=== PATIENT | male | born 1955 | race Hispanic/Latino ===

== ENCOUNTER 2018-01-15 10:07 | Day surgery (SDC) | payer OTHER ==
[2018-01-15] MEDS ORDERED: Ringers Lactate 1,000 ML IV ONE (10:23)
[2018-01-15] MEDS ORDERED: PROPOFOL 200 MG/20 ML VIAL IV ONE ×3 (12:02→12:03)
[2018-01-15] MEDS ORDERED: LIDOCAINE 1% MPF 5 ML VIAL ONE (12:03)
--- NOTE | 2018-01-15 12:49 | ENDO RPT ---
[address], [address] COLONOSCOPY PROCEDURE REPORT EXAM DATE: 01/15/2018 PATIENT NAME: Alec Álvarez MR #: [id number] BIRTHDATE: 1955 ATTENDING: Quincy Ariza Dr STATUS: outpatient CERTIFIED INDOOR ENVIRONMENTALIST: Maryann Ulloa RN, Marbella Wick RN, and Camelia Davis INDICATIONS: The patient is a 62 yr old Male here for a colonoscopy due to personal history of colon polyps PROCEDURE PERFORMED: Colonoscopy with snare polypectomy and Colon w/ endoclip MEDICATIONS: Per Anesthesia. ESTIMATED BLOOD LOSS: None CONSENT: The patient understands the risks and benefits of the procedure and understands that these risks include, but are not limited to: sedation, allergic reaction, infection, perforation and/or bleeding. Alternative means of evaluation and treatment include, among others: physical exam, x-rays, and/or surgical intervention. The patient elects to proceed with this endoscopic procedure. DESCRIPTION OF PROCEDURE: During intra-op preparation period all mechanical medical equipment was checked for proper function. Hand hygiene and appropriate measures for infection prevention was taken. Procedure, possible complications, alternatives including, but not limited to possibility of bleeding, perforation, tear, infection, sepsis, need for surgery, need for blood transfusion, were explained to the patient. After the risks, benefits and alternatives of the procedure were thoroughly explained, Informed consent was verified, confirmed and timeout was successfully executed by the treatment team. The patient was placed in the left lateral position. A digital rectal exam was performed and revealed no abnormalities of the rectum. After appropriate level of anesthesia, the scope was passed. The [id number] ([id number]) endoscope was introduced through the anus and advanced to the terminal ileum which was intubated for a short distance. The quality of the prep was good. The instrument was then slowly withdrawn as the colon was fully examined. Scope withdrawal time was 9 minutes. COLON FINDINGS: A sessile polyp measuring 1.2 cm in size was found in the ascending colon. A polypectomy was performed using snare cautery. Bleeding at the site was controlled using hemoclips. One (1) placement was made. A flat polyp measuring 5 mm in size was found in the rectum. A polypectomy was performed using snare cautery. Mild diverticulosis was noted in the sigmoid colon. No bleeding was noted from the diverticulosis. Moderate sized internal hemorrhoids were found. Retroflexed views revealed medium hemorrhoids. The scope was then completely withdrawn from the patient and the procedure terminated. ADVERSE EVENTS: There were no complications. IMPRESSIONS: 1. Sessile polyp measuring 1.2 cm in size in the ascending colon; polypectomy was performed using snare cautery; bleeding at the site was controlled using hemoclip X1 2. 5 mm flat polyp in the rectum; polypectomy was performed using snare cautery 3. Mild diverticulosis in the sigmoid colon 4. Moderate sized internal hemorrhoids 5. Intubation to terminal ileum 6. Personal history of colon polyps RECOMMENDATIONS: 1. await biopsy results 2. avoid NSAIDS for 2 weeks RECALL: Return in 1 year(s) for Colonoscopy. Quincy Ariza Dr eSigned: Quincy Ariza Dr 01/15/2018 12:49 PM cc: Juan C Medina CPT CODES: ICD9 CODES: 1. 211.3 Benign neoplasm of colon 2. 569.0 Anal and rectal polyp PATIENT NAME: Alec Álvarez MR#: [id number]
== END 2018-01-15 13:32 | disposition home health service (06) ==
LOC: OR 10:07
PROVIDERS: ATTEND Internal Medicine Gastroenterology
PROC: 0DBP8ZZ Excision of Rectum, Via Natural or Artificial Opening Endoscopic (ICD-10-PCS; 2018-01-15)
PROC: 0DBK8ZZ Excision of Ascending Colon, Via Natural or Artificial Opening Endoscopic (ICD-10-PCS; principal; 2018-01-15 12:30)
DX: K63.5 Polyp of colon (principal); K62.1 Rectal polyp
CPT/HCPCS: 88305

== ENCOUNTER 2020-04-26 11:23 | Emergency (ER) | payer OTHER ==
--- OUTSIDE RECORDS SUMMARY | 2020-04-26 11:31 | XMS REPORT | Continuity of Care Document ---
:1955 Author Organization [facility] Address [address] [place] [address] Dr. Coronel [address] [place] [id number] Care Team Providers Name Role Phone Unavailable Unavailable Unavailable Problems This patient has no known problems. Allergies, Adverse Reactions, Alerts This patient has no known allergies or adverse reactions. Medications This patient has no known medications. Procedures This patient has no known procedures. Results This patient has no known results.
[2020-04-26] MEDS ORDERED: TETANUS & DIPHTHERIA TOX,ADULT 0.5 ML VIAL ONE ×2 (12:25→12:27)
--- NOTE | 2020-04-26 13:49 | RAD REPORT ---
EXAM DESCRIPTION: RAD - Knee Left 3 View - 04/26/2020 1:16 pm CLINICAL HISTORY: PAIN COMPARISON: No comparisons FINDINGS: No fracture, dislocation or periosteal reaction.No joint effusion seen. No joint space maria rowing. Spurring is seen at the quadriceps insertion to the patella and patella tendon origin from th e patella. Soft tissue wound is present lateral to the knee and proximal leg. Air is seen in the soft tissues. I ntra-articular extension is not identifiable. IMPRESSION: Lateral soft tissue wound with air in the soft tissues. No communication to the joint space confirmed. No acute bone finding.
[2020-04-26] MEDS ORDERED: SMZ./TMP. 800/160 MG TABLET ONE (14:03)
--- NOTE | 2020-04-26 14:42 | ER ---
Nurse's Notes [facility] Name: Alec Álvarez Age: 64 yrs Sex: Male : 1955 Arrival Date: 04/26/2020 Time: 11:25 Bed 6 Private MD: Diagnosis: Dog Bite;Leg Laceration Presentation: 04/26 11:25 Chief complaint: Patient states: bitten by neighbor's dog 1 hour ago while riding bike. ss PD has been notified CASE # [id number]. Coronavirus screen: Client denies travel out of the [place] in the last 14 days. At this time, the client does not indicate any symptoms associated with coronavirus-19. Ebola Screen: Patient denies exposure to infectious person. Patient denies travel to an Ebola-affected area in the 21 days before illness onset. Initial Sepsis Screen: Does the patient meet any 2 criteria? No. Patient's initial sepsis screen is negative. Does the patient have a suspected source of infection? No. Patient's initial sepsis screen is negative. Risk Assessment: Do you want to hurt yourself or someone else? Patient reports no desire to harm self or others. Onset of symptoms was April 26, 2020. 11:25 Method Of Arrival: Ambulatory ss 11:25 Acuity: TONI 4 ss Triage Assessment: 12:43 Bite description: bite sustained to left leg is from animal, was sustained 1-2 hours ll1 ago. by a dog, animal information: Animal control has been notified, prior to arrival. General: Appears in no apparent distress. Behavior is calm, cooperative, appropriate for age. 14:55 Bite description: animal information: vaccination(s) is current. ll1 Historical: - Allergies: 11:26 PENICILLINS; ss - Immunization history:: Last tetanus immunization: unknown. - Social history:: Smoking status: Patient denies any tobacco usage or history of. Screenin:43 Abuse screen: Denies threats or abuse. Nutritional screening: No deficits noted. ll1 Tuberculosis screening: No symptoms or risk factors identified. Fall Risk Gait- Impaired (20 pts.). Total Te[place] Fall Scale indicates No Risk (0-24 pts). Assessment: 12:00 General: Appears in no apparent distress. Behavior is calm, cooperative. Pain: ll1 Complains of pain in left leg Quality of pain is described as burning, aching, Is continuous. Neuro: No deficits noted. Cardiovascular: No deficits noted. Respiratory: No deficits noted. Derm: Skin Skin is pink, warm \T\ dry. Wound noted dog bite left leg Wound is 2 linear deep abrasions noted to left calf area. Jagged laceration just distal to posterior knee, <4cm. Bleeding controlled. Reports pain. Musculoskeletal: Reports pain in left leg. 13:00 Reassessment: Patient appears in no apparent distress at this time. No changes from ll1 previously documented assessment. Patient and/or family updated on plan of care and expected duration. Pain level reassessed. Patient is alert, oriented x 3, equal unlabored respirations, skin warm/dry/pink. 14:00 Reassessment: Patient appears in no apparent distress at this time. No changes from ll1 previously documented assessment. Patient and/or family updated on plan of care and expected duration. Pain level reassessed. Patient is alert, oriented x 3, equal unlabored respirations, skin warm/dry/pink. 14:53 Reassessment: Patient appears in no apparent distress at this time. No changes from ll1 previously documented assessment. Patient and/or family updated on plan of care and expected duration. Pain level reassessed. Patient is alert, oriented x 3, equal unlabored respirations, skin warm/dry/pink. Vital Signs: 11:25 BP 143 / 92; Pulse 76; Resp 16; Temp 97.6(TE); Pulse Ox 98% on R/A; Weight 122.47 kg; ss Height 6 ft. 1 in. (185.42 cm); Pain 5/10; 14:53 BP 149 / 87; Pulse 57; Resp 17; Pulse Ox 98% ; Pain 0/10; ll1 11:25 Body Mass Index 35.62 (122.47 kg, 185.42 cm) ED Course: 11:25 Patient arrived in ED. ds1 11:26 Triage completed. 11:26 Arm band placed on right wrist. 11:28 Maurilio Lanier PA is PHCP. [facility] 11:28 Juan Campos MD is Attending Physician. [facility] 11:54 Mely Shields, MISTY is Primary Nurse. ll1 12:44 Patient has correct armband on for positive identification. Bed in low position. Call ll1 light in reach. Side rails up X 1. 13:16 Knee Left 3 View XRAY In Process Unspecified. EDMS 14:09 Wound care: to laceration located on left leg was dressed with Neosporin, covered with ll1 non stick dressing. Kerlix, then cleo wrapped. , Patient tolerated well. 14:54 No provider procedures requiring assistance completed. Patient did not have IV access ll1 during this emergency room visit. Administered Medications: 12:25 Drug: Tetanus-Diphtheria Toxoid Adult 0.5 ml {Case Briefer: [employer]. Exp: ll1 11/11/2022. Lot #: [id number]. } Route: IM; Site: left deltoid; 14:55 Follow up: Response: No adverse reaction; RASS: Alert and Calm (0) ll1 14:08 Drug: Clindamycin 300 mg Route: PO; ll1 14:55 Follow up: Response: No adverse reaction; RASS: Alert and Calm (0) ll1 14:08 Drug: Bactrim (160 mg-800 mg (DS) 1 tablet Route: PO; ll1 15:11 Follow up: Response: No adverse reaction; RASS: Alert and Calm (0) ll1 Outcome: 14:41 Discharge ordered by . hiral 14:54 Patient left the ED. ll1 14:54 Discharged to home ambulatory. ll1 14:54 Condition: stable 14:54 Discharge instructions given to patient, Instructed on discharge instructions, follow up and referral plans. medication usage, wound care, Demonstrated understanding of instructions, follow-up care, medications, wound care, Prescriptions given X 2. Signatures: Dispatcher [employer] EDNM Maurilio Lanier PA PA Alison Callahan ds1 Sabi Tobar RN RN ss Lewis, Lynsay, RN RN ll1 Corrections: (The following items were deleted from the chart) 11:27 11:25 Chief complaint: Patient states: bitten by neighbor's dog 1 hour ago while riding bike. PD have been notified CASE # [id number] ss
--- NOTE | 2020-04-26 14:42 | EDPHYS ---
Physician Documentation [facility] Name: Alec Álvarez Age: 64 yrs Sex: Male : 1955 Arrival Date: 04/26/2020 Time: 11:25 Bed 6 Private MD: ED Physician Juan Campos HPI: 04/26 11:40 This 64 yrs old Male presents to ER via Ambulatory with complaints of Dog Bite.jmm 11:40 The patient was bitten on the left leg. Onset: The symptoms/episode began/occurred jmm acutely, just prior to arrival. Associated signs and symptoms: Pertinent negatives: erythema at site, fever, loss of consciousness. This is a 64 year old male that presents to the ED with complaints of a left leg laceration. Patient states he was bitten by a neighbors dog as he was riding a bike. Not UTD on tetanus immunizations. . Historical: - Allergies: 11:26 PENICILLINS; ss - Immunization history:: Last tetanus immunization: unknown. - Social history:: Smoking status: Patient denies any tobacco usage or history of. ROS: 11:40 Constitutional: Negative for fever, chills, and weight loss, Cardiovascular: Negative jmm for chest pain, palpitations, and edema, Respiratory: Negative for shortness of breath, cough, wheezing, and pleuritic chest pain. 11:40 Skin: Positive for laceration(s). 11:40 All other systems are negative. Exam: 11:40 Constitutional: This is a well developed, well nourished patient who is awake, alert, jmm and in no acute distress. Head/Face: atraumatic. Eyes: EOMI, no conjunctival erythema appreciated ENT: Moist Mucus Membranes Neck: Trachea midline, Supple Chest/axilla: Normal chest wall appearance and motion. Cardiovascular: Regular rate and rhythm. No edema appreciated Respiratory: Normal respirations, no respiratory distress appreciated Abdomen/GI: Non distended, soft Back: Normal ROM 11:40 Musculoskeletal/extremity: FROM noted to the left knee, compartments are soft, NVI. 11:40 Skin: 4 cm macerated laceration noted to the left posterior lateral knee. 11:40 Neuro: Orientation: is normal, Mentation: is normal, Memory: is normal. Vital Signs: 11:25 BP 143 / 92; Pulse 76; Resp 16; Temp 97.6(TE); Pulse Ox 98% on R/A; Weight 122.47 kg; ss Height 6 ft. 1 in. (185.42 cm); Pain 5/10; 14:53 BP 149 / 87; Pulse 57; Resp 17; Pulse Ox 98% ; Pain 0/10; ll1 11:25 Body Mass Index 35.62 (122.47 kg, 185.42 cm) ss Laceration: 17:54 Wound Repair of 6cm ( 2.4in ) subcutaneous laceration to left leg. Distal jmm neuro/vascular/tendon intact. Anesthesia: Local anesthetic administered with 10 mls of 1% lidocaine. Wound prep: Extensive cleansing with betadine by me, Wound irrigation with saline by me. Skin closed with 5 4-0 Prolene using loosely approximated. Patient tolerated well. MDM: 11:40 Patient medically screened. [facility] 14:40 Data reviewed: vital signs, nurses notes. Counseling: I had a detailed discussion with [facility] the patient and/or guardian regarding: the historical points, exam findings, and any diagnostic results supporting the discharge/admit diagnosis, radiology results, the need for outpatient follow up, to return to the emergency department if symptoms worsen or persist or if there are any questions or concerns that arise at home. ED course: Patient given wound infection return precautions. . 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 Exp: ll1 11/11/2022. Lot #: [id number]. } Route: IM; Site: left deltoid; 14:55 Follow up: Response: No adverse reaction; RASS: Alert and Calm (0) ll1 14:08 Drug: Clindamycin 300 mg Route: PO; ll1 14:55 Follow up: Response: No adverse reaction; RASS: Alert and Calm (0) ll1 14:08 Drug: Bactrim (160 mg-800 mg (DS) 1 tablet Route: PO; ll1 15:11 Follow up: Response: No adverse reaction; RASS: Alert and Calm (0) ll1 Disposition: 04/27 08:05 Co-signature as Attending Physician, Juan Campos MD I agree with the assessment and kdr plan of care. Disposition: 04/26/20 14:41 Discharged to Home. Impression: Dog Bite, Leg Laceration. - Condition is Stable. - Discharge Instructions: Animal Bite. - Prescriptions for Clindamycin HCl 300 mg Oral Capsule - take 1 capsule by ORAL route every 6 hours for 10 days; 40 capsule. Bactrim DS 800- 160 mg Oral Tablet - take 1 tablet by ORAL route every 12 hours for 10 days; 20 tablet. - Medication Reconciliation Form, Thank You Letter, Antibiotic Education, Prescription Opioid Use form. - Follow up: Private Physician; When: 2 - 3 days; Reason: Recheck today's complaints, Continuance of care, Re-evaluation by your physician. Signatures: Dispatcher [employer] EDMS Juan Campos MD MD kdr Mickail, Joel, PA PA jmm Smirch, Shelby, MISTY RN ss Mely Shields RN RN ll1 Corrections: (The following items were deleted from the chart) 04/26 14:54 14:41 04/26/2020 14:41 Discharged to Home. Impression: Dog Bite; Leg Laceration. ll1 Condition is Stable. Forms are Medication Reconciliation Form, Thank You Letter, Antibiotic Education, Prescription Opioid Use. Follow up: Private Physician; When: 2 - 3 days; Reason: Recheck today's complaints, Continuance of care, Re-evaluation by your physician. hiral
[2020-04-26 15:21] VITALS: BP 143/92; TEMP 97.6; O2SAT 98
== END 2020-04-26 14:54 | disposition home or self-care (01) ==
LOC: ER 11:23
PROC: 0JQP0ZZ Repair Left Lower Leg Subcutaneous Tissue and Fascia, Open Approach (ICD-10-PCS; principal; 2020-04-26)
DX: S81.812A Laceration without foreign body, left lower leg, initial encounter (principal); W54.0XXA Bitten by dog, initial encounter; Y93.55 Activity, bike riding; Y92.89 Other specified places as the place of occurrence of the external cause; Z23 Encounter for immunization; Z88.0 Allergy status to penicillin
CPT/HCPCS: 90471; 90714; 99284

== ENCOUNTER 2022-05-09 06:00 | Day surgery (SDC) | payer OTHER ==
[2022-05-06 15:15] LABS: Absolute Lymphocytes (CBC) 2.6 K/uL (0.7-4.9); Hematocrit 40.7 % (39.6-49.0); Lymphocytes % 25.3 % (15.3-44.8); MCV 87.3 fL (80-100); MPV 9.2 fL (7.6-11.3); RBC Red Blood Cell Count 4.66 M/uL (4.33-5.43)
[2022-05-06 15:28] LABS: Potassium 3.8 mmol/L (3.5-5.1)
--- NOTE | 2022-05-07 08:13 | EKG ---
Test Date: 2022-05-06 Test Time: 14:52:19 Utility Worker Film Processing: PATRICIA MEASUREMENT RESULTS: Intervals: Rate: 70 ND: 182 QRSD: 98 QT: 400 QTc: 432 [place]: P: 61 ND: 182 QRS: 18 T: 29 INTERPRETIVE STATEMENTS: Normal sinus rhythm Normal ECG No previous ECG available for comparison Electronically Signed On 05-07-22 08:11:09 CDT by James Capellan
[2022-05-09] MEDS ORDERED: CLINDAMYCIN 900MG/D5W 900 MG/50 ML IVPB IV ONE (06:22)
[2022-05-09] MEDS: Ringers Lactate 1,000 ML IV ONE ×2 (06:45→06:50)
[2022-05-09] MEDS ORDERED: propofoL 200 MG/20 ML VIAL IV ONE (06:46)
[2022-05-09] MEDS ORDERED: FENTANYL CITR 100 MCG/2 ML ONE ×2 (06:46→07:54)
[2022-05-09] MEDS ORDERED: LIDOCAINE 1% MPF 5 ML VIAL ONE (06:46)
[2022-05-09] MEDS ORDERED: ACETAMINOPHEN 500 MG TAB ONE (06:52)
[2022-05-09] MEDS ORDERED: CLINDAMYCIN 900MG/D5W 900 MG/50 ML IVPB IV SCH (07:00)
[2022-05-09] MEDS ORDERED: ONDANSETRON 4 MG/2 ML VIAL ONE (07:22)
[2022-05-09 08:33] VITALS: O2SAT 98
[2022-05-09 09:13] VITALS: BP 137/76; TEMP 96.4
--- NOTE | 2022-05-09 19:11 | OP ---
Date of Procedure: 05/09/2022 Surgeon: Shahriar Naidu MD Preoperative Diagnosis: Right knee pain with mechanical symptoms, probable meniscal tear or tears. 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 3.Tear of medial meniscus. Procedure: Right knee arthroscopy with debridement of medial meniscus as well as some light abrasion chondroplasty of the medial femoral condyle for unstable flaps. Estimated Blood Loss: Less than 10 cc. Complications: There were no complications. Specimen: No pathology specimens sent. Indications: Mr. Álvarez is a 67-year-old male who unfortunately has pain and problems with his knee f or some time. He does have evidence of meniscal tear on MRI as well as degenerative changes. Risks, benefits, and alternatives of different methods of treating have been discussed with the patient in the office for arthroscopic intervention for mechanical symptoms. He knows that arthroscopy is not g ood for degenerative articular lesions, however, hopefully will help with his mechanical complaints. All of his questions have been answered. Description Of Procedure: The patient was taken to the operating room and placed in the supine posit ion. General anesthesia was obtained by staff. Following this, well-padded tourniquet was placed on superior right thigh. Right lower extremity was then prepped and draped in usual sterile fashion. The tourniquet was not used throughout the procedure. A standard superomedial arthroscopy portal was then placed with aspiration of approximately 5 cc of rather normal-appearing synovial fluid. This w as followed by placement of inferolateral arthroscopy portal, which was made atraumatically with 1 pa ss. The knee was then sequentially examined including the suprapatellar pouch, the medial and latera l gutters, medial and lateral compartments, as well as the notch and patellofemoral joint. Pertinent findings included an abundance of fat pad on the lateral aspect, making visualization of the lateral compartment difficult. Also seen is what appears to be a grade 3-4 chondromalacia of the medial com partment as well as grade 2-3 chondromalacia of the patellofemoral joint. There does appear to be a tear of the posterior aspect of the medial meniscus. A standard medial arthroscopy portal was then m tawana under direct vision and a probe was then placed within the knee. There are some unstable chondra l flaps on the medial femoral condyle. Also seen is a rather complex displaceable tear of the medial meniscus. After this, with a combination of 3-5 shaver as well as hand instruments were then used t o debride back the medial meniscus to a firm hook stable well contoured base. This was followed by l ight abrasive chondroplasty on the medial femoral condyle to allow for no unstable flaps. There was no chondral tissue removed, which was not unstable by hook palpation. At the end of this, all the ch ondral surfaces as well as the meniscus were firm, hook stable, and well contoured. Attention was th en turned to better visualization of the lateral side. The shaver was then used to debride back quit e a bit of fat pad along the lateral aspect of the knee to allow for visualization. Visualization wa s achieved and there was a little bit of fraying of the lateral meniscus, which was gently made darya h, however, would not call this an official debridement. After this, the knee was again examined in all the above areas with no further pathology seen, which is amenable to arthroscopic intervention. The inferior arthroscopy portals were then stapled shut. Superomedial arthroscopy portal was used fo r placement of Marcaine with epinephrine, which was then stapled shut. He was then placed in a well- padded sterile dressing, awakened, and taken to recovery room in good condition. There were no compl ications. SE/MODL Voice ID: [id number] Report ID: [id number]
== END 2022-05-09 09:06 | disposition home or self-care (01) ==
LOC: OR 06:00
PROVIDERS: ATTEND Orthopaedic Surgery
PROC: 0SBC4ZZ Excision of Right Knee Joint, Percutaneous Endoscopic Approach (ICD-10-PCS; principal; 2022-05-09 07:00)
DX: S83.241D Other tear of medial meniscus, current injury, right knee, subsequent encounter (principal); Z88.0 Allergy status to penicillin
CPT/HCPCS: 93005; 85025; 80048; 36415; 29881; J2704; J3010 ×2; J7120; J2405

== ENCOUNTER 2023-06-16 13:05 | Day surgery (SDC) | payer OTHER ==
--- NOTE | 2023-06-10 14:54 | RAD REPORT ---
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 COMPARISON: Chest Pa And Lat (2 Views) dated 12/23/2018 FINDINGS: Mild interstitial pulmonary edema likely present. The heart is mildly enlarged in size. No displaced fractures. IMPRESSION: Mild CHF.
[2023-06-10 15:32] LABS: Hematocrit 38.9 % (39.6-49.0); Lymphocytes % 19.2 % (15.3-44.8); MCV 87.4 fL (80-100); MPV 8.7 fL (7.6-11.3); Platelets 287 thou/uL (152-406); RBC Red Blood Cell Count 4.45 M/uL (4.33-5.43)
[2023-06-10 15:38] LABS: Protime INR 1.16
--- NOTE | 2023-06-11 14:33 | EKG ---
Test Date: 2023-06-10 Test Time: 14:19:45 Director Underwriter Sales: MASOOD MEASUREMENT RESULTS: Intervals: Rate: 71 [place]: 184 QRSD: 100 QT: 378 QTc: 410 [place]: P: 45 [place]: 184 QRS: 29 T: -2 INTERPRETIVE STATEMENTS: Normal sinus rhythm Normal ECG Compared to ECG 05/06/2022 14:52:19 No significant changes Electronically Signed On 06-11-23 14:30:58 CDT by Ramon Mullen
[2023-06-16] MEDS ORDERED: ACETAMINOPHEN 325 MG TABLET ONE (14:12)
[2023-06-16] MEDS ORDERED: FENTANYL CITR 100 MCG/2 ML ONE (14:43)
[2023-06-16] MEDS ORDERED: LIDOCAINE 1% 20 ML MDV ONE (14:43)
[2023-06-16] MEDS ORDERED: MIDAZOLAM HCL 2 MG/2 ML INJ ONE (14:43)
[2023-06-16] MEDS ORDERED: NITROGLYCERIN/D5W 25 MG/250 ML BTL IV ONE (14:43)
[2023-06-16] MEDS ORDERED: LIDOCAINE 1% MPF 30 ML VIAL ONE (14:44)
[2023-06-16] MEDS ORDERED: DIPHENHYDRAMINE 50 MG/ML VIAL ONE (15:04)
[2023-06-16] MEDS ORDERED: METHYLPREDNISOLONE 125 MG INJ ONE (15:04)
[2023-06-16] MEDS ORDERED: HEPARIN 10,000 UNIT/10 ML VIAL IV ONE (15:26)
[2023-06-16] MEDS ORDERED: REGADENOSON 0.4 MG/5 ML SYR IV ONE (15:26)
[2023-06-16] MEDS ORDERED: CLOPIDOGREL 75 MG TABLET ONE (15:39)
[2023-06-16] MEDS ORDERED: ASPIRIN 325 MG TAB ONE (15:39)
--- OUTSIDE RECORDS SUMMARY | 2023-06-16 18:59 | XMS REPORT | Continuity of Care Document ---
:1955 Author Organization [facility] t Address [address] [place] [address] Care Team Providers Name Role Phone Ángel Medina Attending Clinician Unavailable Fer Wadsworth Attending Clinician Unavailable KNOW, DOES_NOT Admitting Clinician Unavailable Payers Payer Name Policy Type Policy Number Effective Date Expiration Date S ource Problems Condition Condition Condition Status Onset Resolution Last Treating Co mments Source Name Details Category Date Date Treatment Clinician Date [id number] Other tear Problem Co mmon of medial [facility] meniscus - [facility] of right [facility] current Medical injury, Center subsequent encounter [id number] Status Problem Common post [facility] arthroscop - [facility] y of right [facility] [id number] [place], [place] [id number] joint, [facility] knee, - [facility] right [facility] Allergies, Adverse Reactions, Alerts Allergy Allergy Status Severity Reaction(s) Onset Inactive Treating Comm ents Source Name Type Date Date Clinician [id number] Drug Active Unknown Common 85 allergy [facility] Social History Social Habit Start Date Stop Date Quantity Comments Source History of Tobacco Use Co mmon [facility] Sex Assigned At Com mon [facility] Smoking Status Start Date Stop Date Source Never Smoker Common [facility] Medications Ordered Filled Start Stop Current Ordering Indication Dosage Frequency Signature Comments Components Source Medication Medication Date Date Medication? Clinician (SIG) Name Name Acetaminoph Acetaminoph 2021-0 No 1{table Acetaminop en-Codeine en-Codeine 8-18 t_as_ne hen-Codein #3 300-30 #3 300-30 00:00: eded} e #3 MG MG 00 300-30 MG Acetaminoph Acetaminoph 202-0 No 1{table en-Codeine en-Codeine 8-18 t_as_ne #3 300-30 #3 300-30 00:00: eded} MG MG 00 Acetaminoph Acetaminoph 2-0 No 1{table Acetaminop en-Codeine en-Codeine 8-18 t_as_ne hen-Codein #3 300-30 #3 300-30 00:00: eded} e #3 MG MG 00 300-30 MG Acetaminoph Acetaminoph 2021-0 No 1{table Acetaminop en-Codeine en-Codeine 8-18 t_as_ne hen-Codein #3 300-30 #3 300-30 00:00: eded} e #3 MG MG 00 300-30 MG Acetaminoph Acetaminoph 2022-0 No 1{table Acetaminop en-Codeine en-Codeine 8-18 t_as_ne hen-Codein #3 300-30 #3 300-30 00:00: eded} e #3 MG MG 00 300-30 MG Acetaminoph Acetaminoph 2-0 No 1{table Acetaminop en-Codeine en-Codeine 8-18 t_as_ne hen-Codein #3 300-30 #3 300-30 00:00: eded} e #3 MG MG 00 300-30 MG Acetaminoph Acetaminoph 2022-0 No 1{table Acetaminop en-Codeine en-Codeine 8-18 t_as_ne hen-Codein #3 300-30 #3 300-30 00:00: eded} e #3 MG MG 00 300-30 MG hydroCHLORO hydroCHLORO No hydroCHLOR thiazide thiazide Othiazide Tamsulosin Tamsulosin No Tamsulosin HCl HCl HCl hydroCHLORO hydroCHLORO No thiazide thiazide Tamsulosin Tamsulosin No HCl HCl hydroCHLORO hydroCHLORO No hydroCHLOR thiazide thiazide Othiazide Tamsulosin Tamsulosin No Tamsulosin HCl HCl HCl hydroCHLORO hydroCHLORO No hydroCHLOR thiazide thiazide Othiazide Tamsulosin Tamsulosin No Tamsulosin HCl HCl HCl hydroCHLORO hydroCHLORO No hydroCHLOR thiazide thiazide Othiazide Tamsulosin Tamsulosin No Tamsulosin HCl HCl HCl hydroCHLORO hydroCHLORO No hydroCHLOR thiazide thiazide Othiazide Tamsulosin Tamsulosin No Tamsulosin HCl HCl HCl hydroCHLORO hydroCHLORO No hydroCHLOR thiazide thiazide Othiazide Tamsulosin Tamsulosin No Tamsulosin HCl HCl HCl Vital Signs Vital Name Observation Time Observation Value Comments Source height 2022-05-23 09:00:00 73 [in_i] [facility] weight 2022-05-23 09:00:00 276 [lb_av] [facility] temperature 2022-05-23 09:00:00 98.0 [facility]degF[facility] bmi 2022-05-23 09:00:00 36.41 kg/m2 [facility] pressure 2022-05-23 09:00:00 137 mm[Hg] [facility] - systolic [facility] blood pressure 2022-05-23 09:00:00 76 mm[Hg] [facility] - diastolic [facility] height 2022-05-06 10:00:00 73 [in_i] Common S pirit [facility] weight 2022-05-06 10:00:00 275 [lb_av] [facility] S pirit [facility] bmi 2022-05-06 10:00:00 36.28 kg/m2 [facility] blood pressure 2022-05-06 10:00:00 139 mm[Hg] [facility] - systolic [facility] blood pressure 2022-05-06 10:00:00 88 mm[Hg] [facility] - diastolic [facility] height 2022-02-21 13:15:00 73 [in_i] Common S pirit - [facility] weight 2022-02-21 13:15:00 280 [lb_av] [facility] 2022-02-21 13:15:00 36.94 kg/m2 Common [facility] blood pressure 2022-02-21 13:15:00 138 mm[Hg] [facility] - systolic [facility] blood pressure 2022-02-21 13:15:00 78 mm[Hg] [facility] - diastolic [facility] height 2021-12-10 14:00:00 73 [in_i] Common [facility] weight 2021-12-10 14:00:00 279.2 [lb_av] Common [facility] bmi 2021-12-10 14:00:00 36.83 kg/m2 [facility] blood pressure 2021-12-10 14:00:00 140 mm[Hg] [facility] - systolic [facility] blood pressure 2021-12-10 14:00:00 78 mm[Hg] [facility] - diastolic [facility] Procedures This patient has no known procedures. Encounters Start End Encounter Admission Attending Care Care Encounter Source Date/Time Date/Time Type Type Clinicians Facility Department ID 2022-05-23 Outpatient [facility]ul [facility] [id number] Common 09:06:02 a, Ángel [id number] [facility] 2021-12-10 [facility] [id number] Common 13:54:03 a, Ángel [id number] [facility] 2023-03-20 2023-03-20 Outpatient LAMAR Wadsworth, NELPM ECHO LA0 [id number] [facility] 09:46:00 09:46:00 Fer Jaimes [facility] 2022-05-23 2022-05-23 NON-BILLAB STLC STLC [id number] Common 00:00:00 00:00:00 LE VISIT [facility] 2022-05-08 2022-05-08 (TEL) STLC STLC [id number] Co mmon 00:00:00 00:00:00 [facility] 2022-05-06 2022-05-06 OFFICE STLMLC STLMLC [id number] Co mmon 00:00:00 00:00:00 VISIT [facility] PT - CHI LEVEL [address] [place] [address] 2022-02-26 2022-02-26 (TEL) STLMLC STLMLC [id number] Co mmon 00:00:00 00:00:00 [facility] 2022-02-21 2022-02-21 OFFICE STLMLC STLMLC [id number] Co mmon 00:00:00 00:00:00 VISIT [facility] PT - CHI LEVEL [address] [place] [address] 2021-12-18 2021-12-18 (TEL) STLMLC STLMLC [id number] Co mmon 00:00:00 00:00:00 [facility] 2021-12-10 2021-12-10 OFFICE STLMLC STLMLC [id number] Co mmon 00:00:00 00:00:00 VISIT NEW [facility] it PT LEVEL [address] [place] [address] Results Test Description Test Time Test Comments Results Result Comments Source MRI Knee Right Wo MRI Knee Right Wo Cont Cont
[2023-06-16] MEDS ORDERED: ACETAMINOPHEN 325 MG TABLET PO PRN (19:08)
--- NOTE | 2023-06-16 19:10 | P.HP ---
Certification for Inpatient Patient admitted to: Observation With expected LOS: <2 Midnights Patient will require the following post-hospital care: None Practitioner: I am a practitioner with admitting privileges, knowledge of patient current condition, hospital course, and medical plan of care. Services: Services provided to patient in accordance with Admission requirements found in Title 42 Section 412.3 of the Code of Federal Regulations Patient History Date of Service: 06/16/23 Reason for admission: CAD s/p PCI History of Present Illness: 68-year-old male with history of hypertension, moderate aortic valve stenosis was brought into the hospital for an outpatient heart catheterization. He ended up needing to have 3 stents placed and there was difficulty with the Angio-Seal for closure, he needs to have direct pressure applied to the cath site in the right femoral area for approximate 1 hour, cardiology was to observe patient in hospital overnight given risk of bleeding. Allergies Penicillins Allergy (Verified 06/10/23 14:03) Rash/Anaphylaxis shrimp Allergy (Verified 06/10/23 14:03) Swollen Lips Home Medications: Ascorbic Acid [Vitamin C] 500 mg PO DAILY 05/06/22 Cholecalciferol (Vitamin D3) [Vitamin D 5,000 Iu Cap] 5,000 unit PO DAILY 05/06/22 Tamsulosin [Flomax] 0.4 mg PO BEDTIME 05/06/22 Zinc 50 mg PO DAILY 05/06/22 hydroCHLOROthiazide [Hydrochlorothiazide] 25 mg PO DAILY 05/06/22 - Past Medical/Surgical History -: Hypertension -: Moderate aortic valve stenosis -: Rotator cuff, meniscus repair Psychosocial/ Personal History: Lives at home with family - Family History Father -: Heart disease - Social History Smoking Status: Never smoker Alcohol use: No CD- Drugs: No Caffeine use: Yes Place of Residence: Home Review of Systems Unremarkable Physical Examination - Vital Signs Blood Pressure: 131/76 Pulse: 61 Respirations: 18 - Physical Exam General: Alert, In no apparent distress, Oriented x3 HEENT: Atraumatic, PERRLA, Mucous membr. moist/pink, EOMI, Sclerae nonicteric Neck: Supple, 2+ carotid pulse no bruit, No LAD, Without JVD or thyroid abnormality Respiratory: Clear to auscultation bilaterally, Normal air movement Cardiovascular: Regular rate/rhythm, Normal S1 S2, Other (Right femoral cath site dressing clean, dry without obvious signs of hematoma) Capillary refill: >2 Seconds Gastrointestinal: Normal bowel sounds, No tenderness Musculoskeletal: No tenderness Integumentary: No rashes Neurological: Normal speech, Normal strength at 5/5 x4 extr, Normal tone, Normal affect Assessment and Plan - Plan Assessment: CAD status post PCI Hypertension Plan: CAD status post PCI Unable to close with Angio-Seal device, direct pressure applied for 1 hour after procedure, no bleeding currently noted we will observe over hospital for signs of bleeding/complication. Continue aspirin, statin, Plavix. Hypertension Continue home medication. DVT PPX: SCD Code status: Full Discharge Plan: Home Plan to discharge in: 24 Hours - Advance Directives Does patient have a Living Will: No Does patient have a Durable POA for Healthcare: No - Code Status/Comfort Care Code Status Assessed: Yes (Full code) Critical Care: No Time Spent Managing Pts Care (In Minutes): 55
--- NOTE | 2023-06-16 19:13 | CON ---
Date of Consultation: 06/16/2023 Reason For Consultation: Management post PCI. History Of Present Illness: A 68-year-old male, who was evaluated as an outpatient with chest pain a nd shortness of breath on exertion. Had a stress test showed large anterior wall and lateral wall is chemia. We brought him to the cardiac catheterization laboratory today and found to have severe mid and distal LAD stenosis, status post successful PCI, and closure of the groin failed and required lit tle pressure for a long time of small hematoma. He did not have any chest pain. Past Medical History: Hypertension. Medications: Refer to reconciliation sheet for detailed list. He is on lisinopril. Allergies: IODINE. Family History: No premature coronary artery disease or cancer. Social History: He does not smoke or drink. Does not use any drugs. Review of Systems: All systems reviewed and they were negative except what mentioned in HPI. Physical Examination: Vital Signs: Reviewed. Head and Neck: Pupils are equal, reactive to light. Intact eye movements. No JVD. No cervical lym phadenopathy. Neck is supple. Thyroid is not enlarged. Lungs: Clear to auscultation bilaterally. No rhonchi, wheezing, or crackles. No accessory muscle u se. Heart: Regular rate and rhythm. No extra sounds. Abdomen: Soft, nontender. Bowel sounds positive. No organomegaly. No masses or hernia. No rigidi ty or rebound. Extremities: No edema, clubbing, or cyanosis. Intact pulses. Skin: No rash. Neurologic: Alert, awake, oriented x3. No acute focal deficits appreciated. Investigations: Labs are still pending. Assessment And Recommendations: 1.Coronary artery disease, status post PCI of the LAD. Observe overnight due to the failure of clos ure of the groin and to monitor his groin closely overnight. The patient was loaded with aspirin and Plavix. Continue aspirin at 81 mg daily and Plavix 75 mg daily and start Lipitor 40 mg at bedtime. 2.Hypertension. Blood pressure is controlled. Continue lisinopril. SR/MODL Voice ID: [id number] Report ID: [id number]
[2023-06-16 19:42] VITALS: BMI 35.6
--- NOTE | 2023-06-16 19:45 | OP ---
Date of Procedure: 06/16/2023 Surgeon: JANETT KEENE Procedures Performed: 1.Selective coronary angiogram. 2.FFR of the mid and distal LAD, was significant at 0.78. 3.PCI of distal LAD, used 3.0 x 60 mm Synergy drug-eluting stent. 4.PCI of mid LAD, used 3.5 x 28 mm Synergy drug-eluting stent, overlapped distally by using 3.0 x 12 mm drug-eluting stent. Indication: Chest pain with abnormal stress test. Access: Right femoral artery 6-Ethiopian closed with manual pressure. Complications: None. Bleeding: Less than 20. Description Of Procedure: After risks, benefits, alternatives were explained, the patient agreed to procedure and signed informed consent. [facility], prepped and draped in the usual sterile fashion. Then, I accessed right femoral artery using micropuncture kit, ultrasound guidance, fluoroscopy, and placed a 6-Ethiopian Sarita sheath and took a 6-Ethiopian JL4 catheter into the aortic root, engaged the left main, took standard views, and exchang ed for a 6-Ethiopian JR4 catheter, engaged the RCA, took standard views and then I gave systemic heparin to assure ACT level above 250. Took a 6-Ethiopian EBU3.5 into the aortic root, engaged left main and t ook a pressure wire into the aortic root. Pressures were equalized. Heparin was given to assure ACT level above 250 and then the wire was advanced into the distal LAD. FFR was done using Lexiscan, it was significant 0.78. There were 2 jumps, 1 in the distal lesion, 1 in the mid lesion. Then using the Comet wire, it was advanced in distal LAD again and then using a 3.0 balloon, both lesions were d ilated and they opened nicely and then I placed 3.0 x 60 mm Synergy drug-eluting stent distally and p roximally, I placed a 3.5 x 28 mm Synergy drug-eluting stent, overlapped distally by using a 3.0 x 12 mm Synergy drug-eluting stent with excellent results. Then, I removed the wire. Final angiogram wa s satisfactory. I removed the guide and the sheath and then manual pressure was used for closure. Findings: 1.Left main; large, normal. 2.LAD; has a proximal 20% to 30%, mid 60% to 70% with positive FFR, status post successfully PCI as above and then distal 70% with positive FFR, status post successful PCI as above. 3.Left circumflex; large and dominant and no significant disease. 4.RCA; small, nondominant. No significant disease. Conclusion: Severe mid and distal LAD stenosis, status post successful PCI as above, FFR guided. Plan: 1.Aspirin, Plavix, and statin. 2.Observe overnight due to inability to close the groin and requiring manual pressure for a long dana e. If he needs at least 4 hours of bedrest, then carefully monitor the groin. SR/MODL Voice ID: [id number] Report ID: [id number]
[2023-06-16] MEDS: NA CHLORIDE 0.9% 1,000 ML IV SCH (20:52)
[2023-06-16] MEDS ORDERED: ATORVASTATIN 40 MG TAB PO SCH (21:00)
[2023-06-16 23:34] VITALS: O2SAT 96
[2023-06-17] MEDS: NA CHLORIDE 0.9% 1,000 ML IV SCH ×2 (00:40→08:28)
[2023-06-17 03:15] LABS: Absolute Lymphocytes (CBC) 1.1 K/uL (0.7-4.9); Hematocrit 38.2 % (39.6-49.0); Lymphocytes % 9.5 % (15.3-44.8); MCV 86.8 fL (80-100); MPV 8.9 fL (7.6-11.3); Platelets 256 thou/uL (152-406)
[2023-06-17 05:06] LABS: Blood Morphology Comment NOT SEEN (NOT SEEN); Platelet Estimate ADEQ
--- NOTE | 2023-06-17 08:32 | P.DS ---
Admission Date: 06/16/23 Discharge Date: 06/17/23 Disposition: ROUTINE DISCHARGE Discharge Condition: GOOD Reason for Admission: CAD s/p PCI Consultations: 1. Cardiology Procedures: - 06/16/[address] Mullen: 1. Selective coronary angiogram. 2. FFR of the mid and distal LAD, was significant at 0.78. 3. PCI of distal LAD, used 3.0 x 60 mm Synergy drug-eluting stent. 4. PCI of mid LAD, used 3.5 x 28 mm Synergy drug-eluting stent, overlapped distally by using 3.0 x 12 mm drug-eluting stent. Hospital Course: DIAGNOSES: # Coronary Artery Disease s/p PCI # Hypertension # Moderate Aortic Stenosis # Chronic Kidney Disease Stage III HOSPITAL COURSE: Mr. Alec Álvarez is a pleasant 68 year old male with a past medical history significant for coronary artery disease, hypertension, and chronic kidney disease stage III who was admitted to the [facility] on 06/16/2023 following his left heart catheterization procedure. He was admitted to the Medicine service. He had a scheduled cardiac catheterization yesterday, and required PCI x3. Following the procedure, there was difficulty with the Angio-Seal for closure at his right femoral catheter site. He required pressure to the area for approximately 1 hour. He was admitted for observation due to the risk of bleeding. He was monitored in the hospital overnight and did well. His hemoglobin counts remained stable and his catheterization site was clean, dry, and intact, without evidence of bleeding or hematoma. Dr. Mullen has cleared him for discharge with outpatient follow-up. A beta-disha will be considered at his next Cardiology appointment. On 06/17/2023, he was seen on morning rounds and deemed medically stable for discharge. He was discharged with instructions to schedule follow-up appointments with his PCP and with Cardiology (Dr. Mullen). He was provided prescriptions for atorvastatin and clopidogrel. He and his family members were given the opportunity to ask questions and reported no further questions. Furthermore, all questions were answered to the best of my ability. A copy of this discharge summary will be sent to the above providers to facilitate continuity of care. Today, I personally spent 20 minutes on his case, of which greater than 50% of the time was spent in patient education, counseling, and coordination of care as described above. Vital Signs/Physical Exam: Temp Pulse Resp BP Pulse Ox 97.1 F 65 18 140/77 95 06/17/23 04:00 06/17/23 04:00 06/17/23 04:00 06/17/23 04:00 06/17/23 04:00 General: Alert, In no apparent distress, Oriented x3 HEENT: Atraumatic, Mucous membr. moist/pink, Sclerae nonicteric Neck: JVD not distended Respiratory: Clear to auscultation bilaterally, Normal air movement Cardiovascular: No edema, Regular rate/rhythm, Normal S1 S2, No gallops, No rubs, No murmurs Gastrointestinal: Normal bowel sounds, Soft and benign, Non-distended, No tenderness, No rebound, No guarding Musculoskeletal: No clubbing, Other (right femoral catheterization site is clean, dry, intact - without evidence of bleeding or hematoma) Integumentary: No rashes Neurological: Normal speech, Normal affect Laboratory Data at Discharge: WBC 11.20 thou/uL (4.3-10.9) H 06/17/23 02:30 Hgb 13.1 g/dL (13.6-17.9) L 06/17/23 02:30 Hct 38.2 % (39.6-49.0) L 06/17/23 02:30 Plt Count 256 thou/uL (152-406) 06/17/23 02:30 PT 12.8 SECONDS (9.5-12.5) H 06/10/23 14:25 INR 1.16 06/10/23 14:25 APTT 32.9 SECONDS (24.3-36.9) 06/10/23 14:25 Sodium 137 mEq/L (136-145) 06/10/23 14:25 Potassium 4.0 mEq/L (3.5-5.1) 06/10/23 14:25 BUN 23 mg/dL (7-18) H 06/10/23 14:25 Creatinine 1.32 mg/dL (0.70-1.30) H 06/10/23 14:25 Glucose 205 mg/dL (74-106) H 06/10/23 14:25 Home Medications: hydroCHLOROthiazide [Hydrochlorothiazide] 25 mg PO DAILY 05/06/22 Lisinopril [Zestril] 10 mg PO DAILY 06/16/23 Aspirin [Aspirin EC] 81 mg PO DAILY #30 06/17/23 Atorvastatin Calcium [Lipitor] 40 mg PO BEDTIME #30 tab 06/17/23 Clopidogrel Bisulfate [Plavix] 75 mg PO DAILY #30 tab 06/17/23 New Medications: Aspirin [Aspirin EC] 81 mg PO DAILY #30 Atorvastatin Calcium [Lipitor] 40 mg PO BEDTIME #30 tab Clopidogrel Bisulfate [Plavix] 75 mg PO DAILY #30 tab Physician Discharge Instructions: 1. Please call and schedule a follow-up appointment with your PCP in 3-5 days 2. Please call and schedule a follow-up appointment with Cardiology (Dr. Mullen) in 5-7 days Medication changes: 1. Please take clopidogrel (Plavix) 75 mg once per day 2. Please take atorvastatin 40 mg once per day You have been given a 1 month prescription for these medications. Please follow- up with your PCP for medication refills/adjustments Diet: AHA Activity: Ad bari Time spent managing pt's care (in minutes): 25
[2023-06-17] MEDS ORDERED: ASPIRIN EC 81 MG TAB PO SCH (09:00)
[2023-06-17] MEDS ORDERED: CLOPIDOGREL 75 MG TABLET PO SCH (09:00)
[2023-06-17 09:33] VITALS: BP 149/75; TEMP 97.8
--- NOTE | 2023-06-17 09:47 | RAD REPORT ---
EXAM DESCRIPTION: Salima Single View06/17/2023 9:32 am CLINICAL HISTORY: Abnormal recent chest radiograph, concern for CHF. Follow-up COMPARISON: Chest Pa And Lat (2 Views) dated 06/10/2023; Chest Pa And Lat (2 Views) dated 12/23/2018 TECHNIQUE: Portable AP view of the chest. FINDINGS: The lungs are clear. Interval improvement of central interstitial prominence. No pneumotho rax or effusion. The cardiomediastinal contours are unremarkable. IMPRESSION: No acute cardiopulmonary process.
[2023-06-17] MEDS ORDERED: ACETAMINOPHEN 325 MG TABLET ONE (09:50)
--- NOTE | 2023-06-17 17:50 | PN ---
Date of Progress Note: 06/17/2023 Subjective: Seen by bedside, status post PCI of the LAD yesterday, doing very well. Review of Systems: No chest pain, shortness of breath, orthopnea, or cough. No nausea, vomiting, or diarrhea. All othe r systems reviewed, they were negative. Objective: Vital Signs: Reviewed. Head and Neck: Pupils are equal, reactive to light. Intact eye movements. No JVD. No cervical lym phadenopathy. Neck is supple. Thyroid is not enlarged. Lungs: Clear to auscultation bilaterally. No rhonchi, wheezing, or crackles. No accessory muscle u se. Heart: Regular rate and rhythm. No extra sounds. Abdomen: Soft, nontender. Bowel sounds positive. No organomegaly. No masses or hernia. No rigidi ty or rebound. Extremities: No edema, clubbing, or cyanosis. Intact pulses. Groin looks fine. No hematoma. Neurologic: Alert, awake, oriented x3. No acute focal deficits appreciated. Investigation: Labs were reviewed. Assessment And Recommendations: 1.Coronary artery disease, status post PCI of the LAD, doing very well. Continue aspirin and Plavix . 2.Hypertension. Blood pressure is controlled. Continue current management, and from cardiology sta ndpoint, he can be released. Follow up with me in the office in 1 week. 3.Dyslipidemia. Continue statin. SR/MODL Voice ID: [id number] Report ID: [id number]
== END 2023-06-17 10:55 | disposition home or self-care (01) ==
LOC: SUATTDRO 13:05 → CCL 13:05 → 2ND 15:40 → UNDOADMOB 15:40 → 2ND 18:15 → PRE 06-17 09:15 → 2ND 06-17 09:18 → UNDOADMOB 06-17 09:18 → CCL 06-17 10:55
PROVIDERS: ATTEND Internal Medicine
DX: I25.10 Atherosclerotic heart disease of native coronary artery without angina pectoris (principal); L76.32 Postprocedural hematoma of skin and subcutaneous tissue following other procedure; Y84.0 Cardiac catheterization as the cause of abnormal reaction of the patient, or of later complication, without mention of misadventure at the time of the procedure; Y92.239 Unspecified place in hospital as the place of occurrence of the external cause; I35.0 Nonrheumatic aortic (valve) stenosis; I12.9 Hypertensive chronic kidney disease with stage 1 through stage 4 chronic kidney disease, or unspecified chronic kidney disease; N18.30 Chronic kidney disease, stage 3 unspecified; E78.5 Hyperlipidemia, unspecified; Z79.899 Other long term (current) drug therapy; Z88.0 Allergy status to penicillin; Z91.013 Allergy to seafood; Z82.49 Family history of ischemic heart disease and other diseases of the circulatory system
CPT/HCPCS: 36415; 71045; 71046; 76937; 80048; 85025; 85347; 85610; 85730; 93005; 93454; 93571; C1725; C1769; C1893; C9600; J1200; J2001; J2250; J2785; J2930; J3010; J7030; Q9966

== ENCOUNTER → 2023-09-10 | Emergency (ER) | payer OTHER ==
--- OUTSIDE RECORDS SUMMARY | 2023-09-10 10:30 | XMS REPORT | Continuity of Care Document ---
Author Name Unknown Address [address] [facility] [address] [place] [address] [facility] thconnect Address [address] [facility] [address] [place] [address] Care Team Providers Care Reducer Name Role Phone Ángel Medina Attending Clinician Marrya ble Problems Condition Name Condition Details Condition Category Status Onset Date Resolution Date Last Treatment Date Treating Clinician Comments Source [id number] Other tear of medial meniscus of right knee as current injury, subsequent encounter Problem [facility] [id number] Status post arthroscop y of right knee Problem [facility] [id number] Pain, joint, knee, right Problem [facility] Allergies, Adverse Reactions, Alerts Allergy Name Allergy Type Status Severity Reaction(s) Onset Date Inactive Date Treating Clinician Comments Source [id number] Drug allergy Active Unknown [facility] Social History Social Habit Start Date Stop Date Quantity Comments Source History of Tobacco Use [facility] Sex Assigned At [facility] Smoking Status Start Date Stop Date Source Never Smoker [facility] Medications Ordered Medication Name Filled Medication Name Start Date Stop Date Current Medication? Ordering Clinician Indication Dosage Frequency Signature (SIG) Comments Components Source Acetaminoph en-Codeine #3 300-30 MG Acetaminoph en-Codeine #3 300-30 MG 8-18 00:00: 00 No 1{table t_as_ne eded} Acetaminop hen-Codein e #3 300-30 MG Acetaminoph en-Codeine #3 300-30 MG Acetaminoph en-Codeine #3 300-30 MG 2022-0 8-18 00:00: 00 No 1{table t_as_ne eded} Acetaminoph en-Codeine #3 300-30 MG Acetaminoph en-Codeine #3 300-30 MG 2022-0 8-18 00:00: 00 No 1{table t_as_ne eded} Acetaminop hen-Codein e #3 300-30 MG Acetaminoph en-Codeine #3 300-30 MG Acetaminoph en-Codeine #3 300-30 MG 2022-0 8-18 00:00: 00 No 1{table t_as_ne eded} Acetaminop hen-Codein e #3 300-30 MG Acetaminoph en-Codeine #3 300-30 MG Acetaminoph en-Codeine #3 300-30 MG 2022-0 8-18 00:00: 00 No 1{table t_as_ne eded} Acetaminop hen-Codein e #3 300-30 MG Acetaminoph en-Codeine #3 300-30 MG Acetaminoph en-Codeine #3 300-30 MG 2022-0 8-18 00:00: 00 No 1{table t_as_ne eded} Acetaminop hen-Codein e #3 300-30 MG Acetaminoph en-Codeine #3 300-30 MG Acetaminoph en-Codeine #3 300-30 MG 2022-0 8-18 00:00: 00 No 1{table t_as_ne eded} Acetaminop hen-Codein e #3 300-30 MG hydroCHLORO thiazide hydroCHLORO thiazide No hydroCHLOR Othiazide Tamsulosin HCl Tamsulosin HCl No Tamsulosin HCl hydroCHLORO thiazide hydroCHLORO thiazide No Tamsulosin HCl Tamsulosin HCl No hydroCHLORO thiazide hydroCHLORO thiazide No hydroCHLOR Othiazide Tamsulosin HCl Tamsulosin HCl No Tamsulosin HCl hydroCHLORO thiazide hydroCHLORO thiazide No hydroCHLOR Othiazide Tamsulosin HCl Tamsulosin HCl No Tamsulosin HCl hydroCHLORO thiazide hydroCHLORO thiazide No hydroCHLOR Othiazide Tamsulosin HCl Tamsulosin HCl No Tamsulosin HCl hydroCHLORO thiazide hydroCHLORO thiazide No hydroCHLOR Othiazide Tamsulosin HCl Tamsulosin HCl No Tamsulosin HCl hydroCHLORO thiazide hydroCHLORO thiazide No hydroCHLOR Othiazide Tamsulosin HCl Tamsulosin HCl No Tamsulosin HCl Vital Signs Vital Name Observation Time Observation Value Comments Derrick wooten height 2022-05-23 09:00:00 73 [in_i] Commo n [facility] weight 2022-05-23 09:00:00 276 [lb_av] Comm on [facility] temperature 2022-05-23 09:00:00 98.0 [degF] Com mon [facility] bmi 2022-05-23 09:00:00 36.41 kg/m2 Comm on [facility] blood pressure systolic 2022-05-23 09:00:00 137 mm[Hg] [facility] blood pressure diastolic 2022-05-23 09:00:00 76 mm[Hg] [facility] height 2022-05-06 10:00:00 73 [in_i] Commo n [facility] weight 2022-05-06 10:00:00 275 [lb_av] Comm on [facility] bmi 2022-05-06 10:00:00 36.28 kg/m2 Comm on [facility] blood pressure systolic 2022-05-06 10:00:00 139 mm[Hg] [facility] blood pressure diastolic 2022-05-06 10:00:00 88 mm[Hg] [facility] height 2022-02-21 13:15:00 73 [in_i] Commo n [facility] weight 2022-02-21 13:15:00 280 [lb_av] Comm on [facility] bmi 2022-02-21 13:15:00 36.94 kg/m2 Comm on [facility] blood pressure systolic 2022-02-21 13:15:00 138 mm[Hg[facility] pressure diastolic 2022-02-21 13:15:00 78 mm[Hg] [facility] height 2021-12-10 14:00:00 73 [in_i] Commo n [facility] weight 2021-12-10 14:00:00 279.2 [lb_av] Co mmon [facility] bmi 2021-12-10 14:00:00 36.83 kg/m2 Comm on [facility] blood pressure systolic 2021-12-10 14:00:00 140 mm[Hg] [facility] blood pressure diastolic 2021-12-10 14:00:00 78 mm[Hg] [facility] Encounters Start Date/Time End Date/Time Encounter Type Admission Type Attending Clinicians Care Facility Care Department Encounter ID Source 2022-05-23 09:06:02 Outpatient AllegrateSocorro hodgea [facility] [id number] [facility] 2021-12-10 13:54:03 Outpatient Socorro Escalonaa [facility] [id number] [facility] 2022-05-23 00:00:00 2022-05-23 00:00:00 NON-BILLAB LE VISIT [facility] [id number] [facility] 2022-05-08 00:00:00 2022-05-08 00:00:00 (TEL) [facility] [id number] [facility] 2022-05-06 00:00:00 2022-05-06 00:00:00 OFFICE VISIT ESTAB PT LEVEL 3 [facility] [id number] [facility] 2022-02-26 00:00:00 2022-02-26 00:00:00 (TEL) [facility] [id number] [facility] 2022-02-21 00:00:00 2022-02-21 00:00:00 OFFICE VISIT ESTAB PT LEVEL 3 [facility] [id number] [facility] 2021-12-18 00:00:00 2021-12-18 [id number] 2021-12-10 00:00:00 2021-12-10 00:00:00 OFFICE VISIT NEW PT LEVEL 3 [facility] [id number] [facility] Results Test Description Test Time Test Comments Results Result Co mments Source MRI Knee Right Wo Cont MRI Knee Right Wo Cont
--- NOTE | 2023-09-10 11:29 | RAD REPORT ---
EXAM DESCRIPTION: RAD - Tib Fib Right - 09/10/2023 11:20 am CLINICAL HISTORY: PAIN COMPARISON: No comparisons FINDINGS: Soft tissue swelling is seen along the medial aspect of the distal leg. No fracture, dislo cation or radiopaque foreign body. Small calcaneal spur.
--- NOTE | 2023-09-10 12:20 | EDPHYS ---
Physician Documentation [facility] Name: Alec Álvarez Age: 68 yrs Sex: Male : 1955 Arrival Date: 09/10/2023 Time: 10:27 Bed 16 Private MD: Angela Shah ED Physician Julian Sheppard HPI: 09/10 10:39 This 68 yrs old Male presents to ER via Ambulatory with complaints of Leg ms3 Injury. 10:39 68-year-old male with past medical history of diabetes, hypertension, aortic stenosis ms3 presents to the emergency department for right leg pain status post his dog running into his leg last night. Patient states pain is a 5/10 described as pressure. Patient denies any alleviating factors. Historical: - Allergies: 10:37 PENICILLINS; bp - Home Meds: 10:37 lisinopril 10 mg oral tablet 1 tab daily [Active]; Plavix 75 mg Oral tablet 1 tab daily bp [Active]; atorvastatin 40 mg oral tablet 1 tab daily [Active]; aspirin 81 mg Oral capsule [Active]; - PMHx: 10:37 Hypertensive disorder; Diabetes mellitus; bp - PSHx: 10:37 CARDIAC STENT; bp - Immunization history:: Adult Immunizations up to date. - Social history:: Smoking status: Patient denies any tobacco usage or history of. ROS: 10:39 Constitutional: Negative for fever, and chills. Neck: Negative for injury, pain, and ms3 swelling, Cardiovascular: Negative for chest pain, and palpitations. Respiratory: Negative for shortness of breath, cough, wheezing, and pleuritic chest pain, Abdomen/GI: Negative for abdominal pain, nausea, vomiting, diarrhea, and constipation, 10:39 MS/extremity: Positive for ecchymosis, pain, swelling, tenderness, 10:39 All other systems are negative, Exam: 10:39 Constitutional: This is a well developed, well nourished patient who is awake, alert, ms3 and in no acute distress. Head/Face: Normocephalic, atraumatic. Neck: Trachea midline, no cervical lymphadenopathy. Supple, full range of motion without nuchal rigidity, or vertebral point tenderness. No Meningismus. Chest/axilla: Normal chest wall appearance and motion. Nontender with no deformity. Cardiovascular: Regular rate and rhythm with a normal S1 and S2. No gallops, murmurs, or rubs. Normal PMI, no JVD. No pulse deficits. Respiratory: Lungs have equal breath sounds bilaterally, clear to auscultation and percussion. No rales, rhonchi or wheezes noted. No increased work of breathing, no retractions or nasal flaring. 10:39 Skin: injury, Ecchymosis right medial lower leg, Vital Signs: 10:33 BP 115 / 72; Pulse 71; Resp 18; Temp 98.1; Pulse Ox 100% ; Weight 120.2 kg; Height 6 bp ft. 1 in. ; 11:02 BP 120 / 72; Pulse 74; Resp 17; Pulse Ox 99% on R/A; rs5 12:05 BP 116 / 73; Pulse 76; Resp 18; Pulse Ox 99% on R/A; rs5 10:33 Body Mass Index 34.96 (120.20 kg, 185.42 cm) bp MDM: 10:51 Patient medically screened. ms3 12:20 Differential diagnosis: closed fracture, contusion. Data reviewed: vital signs, nurses ms3 notes, radiologic studies, plain films, and as a result, I will discharge patient. Historians other than the Patient: Spouse/Significant Other: Patient's . Counseling: I had a detailed discussion with the patient and/or guardian regarding the historical points, exam findings, and any diagnostic results supporting the discharge/admit diagnosis, radiology results, the need for outpatient follow up, to return to the emergency department if symptoms worsen or persist or if there are any questions or concerns that arise at home. Special discussion: I discussed with the patient/guardian in detail that at this point there is no indication for admission to the hospital. It is understood, however, that if the symptoms persist or worsen the patient needs to return immediately for re-evaluation. ED course: Discussed x-ray results with patient. Patient to follow-up with primary care physician in 2 to 3 days. Patient understands and agrees with plan. All questions were answered. Discussed with patient repeat x-rays may be required in 7 days if pain persist. On reevaluation patient is alert and orient x 4, no apparent distress, nontoxic-appearing, speaking full sentences. Discussed elevation, ice, rest with patient. 09/10 10:51 Order name: Tib Fib Right XRAY; Complete Time: 11:54 ms3 Administered Medications: No medications were administered Disposition Summary: 09/10/23 12:20 Discharge Ordered Notes: Location: Home ms3 Condition: Stable ms3 Diagnosis - Pain in right leg ms3 - Right leg ecchymosis ms3 Followup: ms3 - With: Angela Shah DO - When: 2 - 3 days - Reason: Recheck today's complaints Discharge Instructions: - Discharge Summary Sheet ms3 - Musculoskeletal Pain ms3 Forms: - Medication Reconciliation Form ms3 - Thank You Letter ms3 - Antibiotic Education ms3 - Prescription Opioid Use ms3 - Patient Portal Instructions ms3 - Leadership Thank You Letter ms3 Signatures: Dispatcher [employer] Douglas Nino RN RN Julian Gudino DO DO ms3
--- NOTE | 2023-09-10 12:20 | ER ---
Nurse's Notes [facility] Name: Alec Álvarez Age: 68 yrs Sex: Male : 1955 Arrival Date: 09/10/2023 Time: 10:27 Bed 16 Private MD: Angela Shah Diagnosis: Pain in right leg;Right leg ecchymosis Presentation: 09/10 10:33 Chief complaint: Patient states: STRUCK IN RLE LAST NIGHT BY DOG, NOW WITH HEMATOMA. bp Coronavirus screen: At this time, the client does not indicate any symptoms associated with coronavirus-19. Ebola Screen: No symptoms or risks identified at this time. Initial Sepsis Screen: Does the patient meet any 2 criteria? No. Patient's initial sepsis screen is negative. Does the patient have a suspected source of infection? No. Patient's initial sepsis screen is negative. Risk Assessment: Do you want to hurt yourself or someone else? Patient reports no desire to harm self or others. Onset of symptoms was September 09, 2023 at 18:00. 10:33 Method Of Arrival: Ambulatory bp 10:33 Acuity: TONI 3 bp Triage Assessment: 10:40 General: Appears in no apparent distress. uncomfortable, Behavior is calm, cooperative, bp appropriate for age. Pain: Complains of pain in right ankle. Musculoskeletal: Circulation, motion, and sensation intact. Injury Description: Bruise sustained to right ankle. Historical: - Allergies: 10:37 PENICILLINS; bp - Home Meds: 10:37 lisinopril 10 mg oral tablet 1 tab daily [Active]; Plavix 75 mg Oral tablet 1 tab daily bp [Active]; atorvastatin 40 mg oral tablet 1 tab daily [Active]; aspirin 81 mg Oral capsule [Active]; - PMHx: 10:37 Hypertensive disorder; Diabetes mellitus; bp - PSHx: 10:37 CARDIAC STENT; bp - Immunization history:: Adult Immunizations up to date. - Social history:: Smoking status: Patient denies any tobacco usage or history of. Screenin:[facility] ED Fall Risk Assessment (Adult) History of falling in the last 3 months, rs5 including since admission No falls in past 3 months (0 pts) Confusion or Disorientation No (0 pts) Intoxicated or Sedated No (0 pts) Impaired Gait Yes (1 pt) Mobility Assist Device Used Yes (1 pt) Altered Elimination No (0 pt) Score/Fall Risk Level 0 - 2 = Low Risk Oriented to surroundings, Maintained a safe environment. Abuse screen: Denies threats or abuse. Nutritional screening: No deficits noted. Tuberculosis screening: No symptoms or risk factors identified. Assessment: 10:35 General: Appears in no apparent distress. uncomfortable, Behavior is calm, cooperative. rs5 Pain: Complains of pain in right ankle Pain does not radiate. Pain currently is 5 out of 10 on a pain scale. Quality of pain is described as aching, Pain began 1 day ago. Is continuous, Aggravated by weight bearing. Neuro: Level of Consciousness is awake, alert, obeys commands, Oriented to person, place, time, situation. Cardiovascular: Heart tones S1 S2 present Rhythm is regular. Respiratory: Airway is patent Respiratory effort is even, unlabored, Respiratory pattern is regular, symmetrical, Breath sounds are clear bilaterally. 10:35 GI: Abdomen is round non-distended, Bowel sounds present X 4 quads. Abd is soft and non rs5 tender X 4 quads. : No signs and/or symptoms were reported regarding the genitourinary system. EENT: No signs and/or symptoms were reported regarding the EENT system. Derm: Skin is intact, Skin is pink, warm \T\ dry. Bruising that is dark purple, on right ankle . Musculoskeletal: Circulation, motion, and sensation intact. Capillary refill < 3 seconds, is brisk, in bilateral fingers. toes. Range of motion: limited in right ankle Swelling present in right ankle. 12:00 Reassessment: Patient and/or family updated on plan of care and expected duration. Pain rs5 level reassessed. Patient is alert, oriented x 3, equal unlabored respirations, skin warm/dry/pink. Vital Signs: 10:33 BP 115 / 72; Pulse 71; Resp 18; Temp 98.1; Pulse Ox 100% ; Weight 120.2 kg; Height 6 bp ft. 1 in. ; 11:02 BP 120 / 72; Pulse 74; Resp 17; Pulse Ox 99% on R/A; rs5 12:05 BP 116 / 73; Pulse 76; Resp 18; Pulse Ox 99% on R/A; rs5 10:33 Body Mass Index 34.96 (120.20 kg, 185.42 cm) bp ED Course: 10:28 Patient arrived in ED. rg4 10:29 Angela Shah DO is Private Physician. rg4 10:31 Julian Sheppard DO is Attending Physician. ms3 10:36 Huy Sims, RN is Primary Nurse. rs5 10:36 Triage completed. bp 10:37 Arm band placed on. bp 10:51 Patient has correct armband on for positive identification. Bed in low position. Call rs5 light in reach. Side rails up X2. 11:22 Tib Fib Right XRAY In Process Unspecified. EDMS 12:19 Angela Shah DO is Referral Physician. ms3 12:20 No provider procedures requiring assistance completed. rs5 12:20 Patient did not have IV access during this emergency room visit. rs5 Administered Medications: No medications were administered Medication: 12:20 VIS not applicable for this client. rs5 Outcome: 12:20 Discharge ordered by MD. ms3 12:20 Discharged to home ambulatory, with family, rs5 12:20 Condition: stable 12:20 Discharge instructions given to patient, family, Instructed on discharge instructions, follow up and referral plans. Demonstrated understanding of instructions, follow-up care, 12:29 Patient left the ED. rs5 Signatures: Dispatcher [employer] Inna Mancia rg4 Douglas Bryant, RN RN bp Julian Sheppard DO DO ms3 Huy Sims, RN RN rs5
[2023-09-10 12:58] VITALS: BP 115/72; TEMP 98.1; O2SAT 100
== END ==
LOC: ER 10:27
DX: S80.11XA Contusion of right lower leg, initial encounter (principal)
CPT/HCPCS: 99283

== ENCOUNTER 2024-05-05 11:05 | Day surgery (SDC) | payer OTHER ==
[2024-05-04 14:23] LABS: Absolute Eosinophils 0.3 K/uL (0-0.5); Absolute Lymphocytes (CBC) 2.3 K/uL (0.7-4.9); Absolute Monocytes 0.9 K/uL (0.1-1.3); Absolute Neutrophil 5.7 K/uL (1.8-8.0); Basophils % 0.3 % (0-1.3); Eosinophils % 3.4 % (0-4.4); Hematocrit 40.6 % (39.6-49.0); Hemoglobin 13.3 g/dL (13.6-17.9); Lymphocytes % 24.9 % (15.3-44.8); MCH 29.3 pg (27.0-35.0); MCHC 32.8 g/dL (32.0-36.0); MCV 89.3 fL (80-100); MPV 9.5 fL (7.6-11.3); Monocytes % 9.7 % (3.3-12.3); Neutrophils % 61.7 % (41.7-73.7); Platelets 193 thou/uL (152-406); RBC Red Blood Cell Count 4.55 M/uL (4.33-5.43); Red Cell Distribution Width 14.1 % (12.1-15.2)
[2024-05-04 14:33] LABS: PT Prothrombin Time 12.5 SECONDS (9.4-12.5); PTT, Activated Partial Thromb 33.4 SECONDS (24.3-36.9); Protime INR 1.12
[2024-05-04 14:38] LABS: Anion Gap 6.8 mEq/L (5.0-15.0); Potassium 4.8 mEq/L (3.5-5.1)
--- NOTE | 2024-05-04 20:43 | RAD REPORT ---
EXAM DESCRIPTION: RAD - Chest Pa And Lat (2 Views) - 05/04/2024 2:28 pm CLINICAL HISTORY: SOB on exertion. Pre op pending heart cath. Previous heart stents. COMPARISON: Chest Single View dated 06/17/2023; Chest Pa And Lat (2 Views) dated 06/10/2023; Chest Pa And Lat (2 Views) dated 12/23/2018 TECHNIQUE: PA and lateral views of the chest were obtained. FINDINGS: The lungs are clear. Heart size is normal and central vasculature is within normal limits. No pleural effusion or pneumothorax seen. No acute bony finding noted. IMPRESSION: No acute cardiopulmonary process.
[2024-05-05] MEDS ORDERED: HEPA 1000U/500MLS 2,000 UNIT/1,000 ML BAG IV ONE (12:38)
[2024-05-05] MEDS ORDERED: ATROPINE SULF 1 MG/10 ML SYR IV ONE (12:39)
[2024-05-05] MEDS ORDERED: HEPARIN 5000 UNIT/ML 1 ML VIAL ONE (12:39)
[2024-05-05] MEDS ORDERED: FENTANYL CITR 100 MCG/2 ML ONE (12:39)
[2024-05-05] MEDS ORDERED: VERAPAMIL HCL 10 MG/4 ML VIAL IV ONE (12:39)
[2024-05-05] MEDS ORDERED: LIDOCAINE 1% 20 ML MDV ONE (12:39)
[2024-05-05] MEDS ORDERED: MIDAZOLAM HCL 2 MG/2 ML INJ ONE (12:39)
[2024-05-05] MEDS ORDERED: TICAGRELOR 90 MG TABLET PO ONE (12:40)
[2024-05-05] MEDS ORDERED: CLOPIDOGREL 75 MG TABLET ONE (12:40)
[2024-05-05] MEDS ORDERED: HEPARIN 10,000 UNIT/10 ML VIAL IV ONE (12:40)
[2024-05-05] MEDS ORDERED: ASPIRIN 325 MG TAB ONE (12:40)
[2024-05-05] MEDS ORDERED: ASPIRIN 81 MG CHEWABLE TABLET ONE (13:40)
[2024-05-05 16:32] VITALS: O2SAT 99
[2024-05-05 16:54] VITALS: BP 135/65
== END 2024-05-05 17:01 | disposition home or self-care (01) ==
LOC: CCL 11:05
PROVIDERS: ATTEND Internal Medicine
DX: I25.10 Atherosclerotic heart disease of native coronary artery without angina pectoris (principal); I35.0 Nonrheumatic aortic (valve) stenosis; T82.855A Stenosis of coronary artery stent, initial encounter; I65.22 Occlusion and stenosis of left carotid artery; I10 Essential (primary) hypertension; E78.2 Mixed hyperlipidemia; Z79.82 Long term (current) use of aspirin; Z79.899 Other long term (current) drug therapy; Z88.0 Allergy status to penicillin; Z91.013 Allergy to seafood; Z82.49 Family history of ischemic heart disease and other diseases of the circulatory system
CPT/HCPCS: 85025; 80048; 36415; 85610; 85730; 71046; 93454; 76937; C1893; Q9967; C1725; C9600; J1644; J2001; J2250; J3010; 93005; 99152; J0461